=== PATIENT | female | born 1935 | race African-American/Black ===

== ENCOUNTER 2017-01-02 11:29 | Emergency (ER) | payer MEDICAID, MEDICARE ==
[~2017-01-02] VITALS: Ht 160 cm; Wt 77.1 kg
[~2017-01-02 11:29] MED LIST: AMITIZA24 MCG ORAL; AMLODIPINE BESY10 MG ORAL; ASPIR 8181 MG ORAL; BENAZEPRIL HCL20 MG ORAL; CARVEDILOL25 MG ORAL; COLACE100 MG ORAL; CYCLOBENZAPRINE10 MG ORAL; KEPPRA500 M4 ORAL; LACTULOSE20 GM/301 ORAL; LANTUS SOL100 UNIT/1 SUBQ; NORCO 5-325 TA1 EACH ORAL; NOVOLIN R100 UNIT/1 SUBQ; SIMVASTATIN40 MG ORAL; UNOBMED
[2017-01-02 12:08] VITALS: BP 106/63
[2017-01-02] MEDS ORDERED: Methocarbamol 750mg tab ORAL ONE (12:15)
[2017-01-02] MEDS ORDERED: Tylenol #3 tab (300mg/30mg) ORAL ONE (12:15)
[2017-01-02] MEDS ORDERED: CYCLOBENZAPRINE10 MG ORAL (12:31)
[2017-01-02 12:32] LABS: APPEARANCE,URINE SLIGHTLY CLOUDY; KETONES,URINE NEGATIVE (NEGATIVE); LEUKOCYTE ESTERASE ,URINE 3+ (NEGATIVE); NITRITE,URINE POSITIVE (NEGATIVE); PH,URINE 5 (4.5-8.0); PROTEIN,URINE 2+ (NEGATIVE); UROBILINOGEN,URINE 1 MG/DL (0.0-1.0)
--- NOTE | 2017-01-02 12:37 | Emergency Room Report ---
History of Present Illness General Chief Complaint: Pain Present Illness HPI The patient is a 81-year-old female presenting with right-sided back pain. 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 It is described as an 8/10 dull ache to the right lower back and radiates to the right inguinal region. Worse with walking. She states that she usually ambulates with a cane. She denies any numbness or tingling. She denies any other symptoms including nausea, vomiting , fever, chills, chest pain, shortness of breath, swelling, rash Allergies: Coded Allergies: No Known Allergies (Verified , 08/22/06) Patient History Past Medical History: see triage record Pertinent Family History: none Reviewed Nursing Documentation: PMH: Agreed, PSxH: Agreed Nursing Documentation-PMH Hx Cardiac Problems: No Hx Hypertension: Yes Hx Pacemaker: No Hx Asthma: No Hx COPD: No Hx Diabetes: Yes Hx Cancer: No Hx Gastrointestinal Problems: No Hx Dialysis: No Hx Neurological Problems: No Hx Cerebrovascular Accident: No Hx Seizures: No Review of Systems All Other Systems: negative except mentioned in HPI Physical Exam Vital Signs Date Time Temp Pulse Resp B/P Pulse Ox O2 Delivery O2 Flow Rate FiO2 01/02/17 11:47 98.1 70 20 106/63 96 Room Air Sp02 EP Interpretation: reviewed, normal General Appearance: no apparent distress, alert, GCS 15, non-toxic Head: normocephalic, atraumatic Eyes: bilateral eye PERRL, bilateral eye normal inspection Musculoskeletal: back normal, gait/station normal, normal range of motion, tender - TTP over the R posterior thigh. Neurologic: alert, oriented x3, responsive, motor strength/tone normal, sensory intact, speech normal Psychiatric: judgement/insight normal, memory normal, mood/affect normal, no suicidal/homicidal ideation Skin: normal color, no rash, warm/dry, well hydrated Medical Decision Making PA Attestation Dr. Swain is my supervising physician. Patient management was discussed with my supervising physician Diagnostic Impression: Primary Impression: Muscle strain Additional Impression: Urinary tract infection ER Course The patient is a 81-year-old female presenting with right-sided back pain. Ddx considered include but not limited to sprain/strain, fracture, contusion, pyelonephritis, among others PE: afebrile. NAD Normal gait TTP over the R posterior thigh and buttock. Abd is soft and non tender. No CVA tenderness UA consistent with UTI Pt is given pain medication and muscle relaxer and pain has decreased. She will be AZ'ed home with prescription for keflex and muscle relaxer. The patient was called on 01/03 regarding the urinalysis. She was told that she has a urinary tract infection and needs antibiotics. Prescription was sent to [facility] pharmacy where the patient states she will bulk picker the medication today. ER precautions given Laboratory Tests Test 01/02/17 12:22 Urine Color Yellow Urine Appearance Slightly cloudy Urine pH 5 (4.5-8.0) Urine Specific [place] 1.015 (1.005-1.035) Urine Protein 2+ (NEGATIVE) H Urine Glucose (UA) Negative (NEGATIVE) Urine Ketones Negative (NEGATIVE) Urine Occult Blood 2+ (NEGATIVE) H Urine Nitrite Positive (NEGATIVE) H Urine Bilirubin Negative (NEGATIVE) Urine Urobilinogen 1 MG/DL (0.0-1.0) H Urine Leukocyte Esterase 3+ (NEGATIVE) H Urine RBC 2-4 /HPF (0 - 2) H Urine WBC 30-40 /HPF (0 - 2) H Urine Squamous Epithelial Cells Moderate /LPF (NONE/OCC) H Urine Bacteria Moderate /HPF (NONE) H Lab Results Impression Consistent with UTI Last Vital Signs Date Time Temp Pulse Resp B/P Pulse Ox O2 Delivery O2 Flow Rate FiO2 01/02/17 12:08 98.1 78 20 106/63 96 Room Air Status: improved Disposition: HOME, SELF-CARE Condition: Improved Scripts Cephalexin* (KEFLEX*) 500 Mg Capsule 500 MG ORAL EVERY 12 HOURS, #14 CAP 0 Refills Prov: TERZIANCHENG P.A. 01/03/17 Cyclobenzaprine Hcl* (FLEXERIL*) 10 Mg Tablet 10 MG ORAL THREE TIMES A DAY, #15 TAB Prov: WASHINGTONCHENG P.A. 01/02/17 Patient Instructions: Muscle Strain, [id number] Additional Instructions: I discussed my findings with the patient. All questions and concerns have been answered. Treatment and medication compliance have been addressed. I advised the patient that they need to follow up with PMD in 3-5 days. Return to ED if symptoms worsen, new symptoms arise, or if needed for any reason. Patient verbalized understanding of discharge instructions. CHENG DELAROSA Jan 02, 2017 12:37
[2017-01-02 12:47] LABS: BACTERIA,URINE MODERATE /HPF; SQUAMOUS EPITHELIAL CELL,UR MODERATE /LPF (NONE/OCC); WBC,URINE 30-40 /HPF (0 - 2)
[2017-01-02 12:49] VITALS: BP 106/63
[2017-01-03] MEDS ORDERED: CEPHALEXIN500 MG ORAL (11:56)
== END 2017-01-02 12:56 | disposition home or self-care (01) ==
LOC: EMR 12:10
DX: S39.012A Strain of muscle, fascia and tendon of lower back, initial encounter (principal); X50.9XXA Other and unspecified overexertion or strenuous movements or postures, initial encounter; Y92.89 Other specified places as the place of occurrence of the external cause; N39.0 Urinary tract infection, site not specified; I10 Essential (primary) hypertension; E11.9 Type 2 diabetes mellitus without complications
CPT/HCPCS: 81003; 87086; 87181; 99284

== ENCOUNTER 2017-07-19 09:56 | Emergency (ER) | payer MEDICARE ==
[~2017-07-19] VITALS: Ht 160 cm; Wt 77.1 kg
[~2017-07-19 09:56] MED LIST changes: +CEPHALEXIN500 MG ORAL
[2017-07-19 10:14] VITALS: BP 124/57
[2017-07-19] MEDS ORDERED: NS 275ml ONE (10:31)
[2017-07-19] MEDS ORDERED: Tubing IV Secondary IV ONE (10:31)
[2017-07-19] MEDS ORDERED: Neosporin Oint Ud Pkt TOP ONE (11:00)
[2017-07-19] MEDS ORDERED: Tetanus/Diptheria/Pertussis Vaccine 0.5ml Syr IM ONE (11:00)
[2017-07-19] MEDS ORDERED: Ketorolac 30mg Inj IV ONE (11:00)
[2017-07-19] MEDS ORDERED: Morphine Sulfate 2mg/ml Inj IVP ONE (11:00)
--- NOTE | 2017-07-19 11:03 | Emergency Room Report ---
History of Present Illness General Chief Complaint: Multiple Trauma/Fall Source: Patient, Medical Record Present Illness HPI The patient fell on Monday. She didn't have her cane and turned and lost balance falling onto her right side. No LOC. She's been having headache and neck pain after that time. She presents complaining about this pain. She is the pain is 10/10. She's tried taking Mckenzie and it helped slightly. She also scraped her right knee. She's able to ambulate still using her cane. She is unsure when her last tetanus shot was. No NVD, chest pain, palpitations, cough, dysuria, change in vision, weakness. No fevers. Prior CVA. Allergies: Coded Allergies: No Known Allergies (Verified , 08/22/06) Patient History Past Medical History: see triage record Social History: Reports: smoking Social History Narrative with daughter Reviewed Nursing Documentation: PMH: Agreed, PSxH: Agreed Nursing Documentation-PMH Past Medical History: No History, Except For Hx Cardiac Problems: No Hx Hypertension: Yes Hx Pacemaker: No Hx Asthma: No Hx COPD: No Hx Diabetes: Yes Hx Cancer: No Hx Gastrointestinal Problems: No Hx Dialysis: No Hx Neurological Problems: No Hx Cerebrovascular Accident: No Hx Seizures: No Review of Systems All Other Systems: negative except mentioned in HPI Physical Exam Vital Signs Date Time Temp Pulse Resp B/P (MAP) Pulse Ox O2 Delivery O2 Flow Rate FiO2 07/19/17 10:04 97.6 68 18 133/65 98 Room Air 97.5 Sp02 EP Interpretation: reviewed, normal General Appearance: well appearing, no apparent distress, GCS 15 Head: normocephalic, atraumatic Eyes: bilateral eye normal inspection, bilateral eye PERRL, bilateral eye EOMI ENT: moist mucus membranes Neck: supple, no bony tend, tender - base of head, muscle tenderness Respiratory: chest non-tender, lungs clear, normal breath sounds Cardiovascular #1: regular rate, rhythm Cardiovascular #2: 2+ radial (R) Gastrointestinal: normal inspection, normal bowel sounds, non tender, no mass, non-distended Musculoskeletal: back normal, normal range of motion, pelvis stable, other - slight limp, tender - R knee without effusion, ligaments with laxity (all) Neurologic: alert, oriented x3, 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 nml as tested, motor strength/tone normal - slight weakness R LE, DTRs symmetric, sensory intact Psychiatric: mood/affect normal Skin: warm/dry, abrasions - R knee Medical Decision Making Diagnostic Impression: Primary Impression: Fall Qualified Codes: W19.XXXA - Unspecified fall, initial encounter Additional Impressions: UTI (urinary tract infection) Qualified Codes: N30.00 - Acute cystitis without hematuria Multiple injuries due to trauma Head injury Qualified Codes: S09.90XA - Unspecified injury of head, initial encounter Neck strain Qualified Codes: S16.1XXA - Strain of muscle, fascia and tendon at neck level , initial encounter Vascular calcification ER Course Patient with fall Monday with headache and neck pain. DDX: contusion, concussion, strain, sprain. Knee with abrasion and tenderness. Due to age CT head, neck and knee x-rays indicated. Also will check labs and urine. Analgesia ordered. CT head and neck with DJD, no acute bleed. Knee without fx. Labs essentially normal (glucose 194) with pyuria. Antibiotics ordered. Improved with treatment. Patient results discussed with Dr. Rogers who is in agreement with plan to treat as outpatient. Patient stable for outpatient observation and treatment. Laboratory Tests Test 07/19/17 11:05 07/19/17 11:40 White Blood Count 10.8 K/UL (4.8-10.8) Red Blood Count 3.88 M/UL (4.20-5.40) L Hemoglobin 11.7 G/DL (12.0-16.0) L Hematocrit 35.7 % (37.0-47.0) L Mean Corpuscular Volume 92 FL (80-99) Mean Corpuscular Hemoglobin 30.1 PG (27.0-31.0) Mean Corpuscular Hemoglobin Concent 32.7 G/DL (32.0-36.0) Red Cell Distribution Width 12.2 % (11.6-14.8) Platelet Count 228 K/UL (150-450) Mean Platelet Volume 7.9 FL (6.5-10.1) Neutrophils (%) (Auto) 72.4 % (45.0-75.0) Lymphocytes (%) (Auto) 19.1 % (20.0-45.0) L Monocytes (%) (Auto) 6.1 % (1.0-10.0) Eosinophils (%) (Auto) 1.4 % (0.0-3.0) Basophils (%) (Auto) 1.0 % (0.0-2.0) Prothrombin Time 9.8 SEC (9.30-11.50) Prothrombin Time INR 0.9 (0.9-1.1) PTT 28 SEC (23-33) Sodium Level 140 MMOL/L (136-145) Potassium Level 3.9 MMOL/L (3.5-5.1) Chloride Level 105 MMOL/L (98-107) Carbon Dioxide Level 30 MMOL/L (21-32) Anion Gap 5 mmol/L (5-15) Blood Urea Nitrogen 15 mg/dL (7-18) Creatinine 1.0 MG/DL (0.55-1.30) Estimate Glomerular Filtration Rate mL/min (>60) Glucose Level 194 MG/DL (74-106) H Calcium Level 9.2 MG/DL (8.5-10.1) Total Bilirubin 0.2 MG/DL (0.2-1.0) Aspartate Amino Transferase (AST) 12 U/L (15-37) L Alanine Aminotransferase (ALT) 14 U/L (12-78) Alkaline Phosphatase 72 U/L (46-116) Total Protein 7.2 G/DL (6.4-8.2) Albumin 3.2 G/DL (3.4-5.0) L Globulin 4.0 g/dL Albumin/Globulin Ratio 0.8 (1.0-2.7) L Urine Color Yellow Urine Appearance Clear Urine pH 5 (4.5-8.0) Urine Specific [place] 1.015 (1.005-1.035) Urine Protein Negative (NEGATIVE) Urine Glucose (UA) Negative (NEGATIVE) Urine Ketones Negative (NEGATIVE) Urine Occult Blood 1+ (NEGATIVE) H Urine Nitrite Positive (NEGATIVE) H Urine Bilirubin Negative (NEGATIVE) Urine Urobilinogen Normal MG/DL (0.0-1.0) Urine Leukocyte Esterase 2+ (NEGATIVE) H Urine RBC 2-4 /HPF (0 - 2) H Urine WBC 5-10 /HPF (0 - 2) H Urine Squamous Epithelial Cells Few /LPF (NONE/OCC) Urine Bacteria Moderate /HPF (NONE) H EKG Diagnostic Results Rate: normal Rhythm: NSR ST Segments: no acute changes Rhythm Strip Diag. Results EP Interpretation: yes Rhythm: NSR, no PVC's, no ectopy Other X-Ray Diagnostic Results Other X-Ray Diagnostic Results : X-Ray ordered: R knee # of Views/Limited Vs Complete: 3 View Indication: Pain EP Interpretation: Yes Interpretation: no dislocation, no soft tissue swelling, no fractures, other - calcificied vessels Impression: Other Electronically Signed by: Electronically signed by Luciano Walker MD CT/MRI/US Diagnostic Results CT/MRI/US Diagnostic Results #1: Imaging Test Ordered: head Impression atrophy CT/MRI/US Diagnostic Results #2: Imaging Test Ordered: c spine Impression spondylosis, vascular disease Last Vital Signs Date Time Temp Pulse Resp B/P (MAP) Pulse Ox O2 Delivery O2 Flow Rate FiO2 07/19/17 15:10 97.8 68 17 142/57 98 Room Air 97.8 Status: improved Disposition: HOME, SELF-CARE Condition: Improved Scripts Methocarbamol* (ROBAXIN*) 500 Mg Tablet 500 MG PO TID, #10 TAB 0 Refills Prov: Luciano Walker M.D. 07/19/17 Lactulose (LACTULOSE*) 20 Gm/30 Ml Solution 30 ML ORAL BID, #240 ML 0 Refills Prov: Luciano Walker M.D. 07/19/17 Hydrocodone Bit/Acetaminophen 5-325* (NORCO 5-325*) 1 Each Tablet 1 TAB ORAL Q6H Y for For Pain, #14 TAB 0 Refills Prov: Luciano Walker M.D. 07/19/17 Referrals: ANN ROGERS (PCP) Luciano Walker M.D. Jul 19, 2017 11:03
[2017-07-19 11:22] LABS: EOSINOPHILS % (AUTO) 1.4 % (0.0-3.0); HEMATOCRIT 35.7 % (37.0-47.0); HEMOGLOBIN 11.7 G/DL (12.0-16.0); LYMPHOCYTES % (AUTO) 19.1 % (20.0-45.0); MEAN CORPUSCULAR VOLUME 92 FL (80-99); MONOCYTES % (AUTO) 6.1 % (1.0-10.0); NEUTROPHILS % (AUTO) 72.4 % (45.0-75.0); PLATELET COUNT 228 K/UL (150-450); RED BLOOD COUNT 3.88 M/UL (4.20-5.40); RED CELL DISTRIBUTION WIDTH 12.2 % (11.6-14.8); WHITE BLOOD COUNT 10.8 K/UL (4.8-10.8)
[2017-07-19 11:31] LABS: INR 0.9 (0.9-1.1)
[2017-07-19 11:33] LABS: ANION GAP 5 mmol/L (5-15); BLOOD UREA NITROGEN 15 mg/dL (7-18); CALCIUM 9.2 MG/DL (8.5-10.1); CARBON DIOXIDE 30 MMOL/L (21-32); CHLORIDE 105 MMOL/L (98-107); POTASSIUM 3.9 MMOL/L (3.5-5.1); SODIUM 140 MMOL/L (136-145)
[2017-07-19 11:37] LABS: ALANINE AMINOTRANSFERASE 14 U/L (12-78); ALBUMIN 3.2 G/DL (3.4-5.0); ALBUMIN/GLOBULIN RATIO 0.8 (1.0-2.7); ALKALINE PHOSPHATASE 72 U/L (46-116); ASPARTATE AMINO TRANSFERASE 12 U/L (15-37); BILIRUBIN,TOTAL 0.2 MG/DL (0.2-1.0)
--- NOTE | 2017-07-19 11:47 | Diagnostic Imaging Report ---
Indication: Pain 3 views of the right knee were obtained. Findings: The patella is high riding. There is soft tissue swelling in the area of the patellar tendon which could be on the basis of tendinopathy, injury to the tendon and/or prepatellar bursitis. Please correlate clinically. Extensive calcification of the distal superficial femoral artery and popliteal artery noted extending into the tibial vessels. Joint space appears normal within the knee. There is no malalignment or acute fracture. Some cystic changes noted in the patella associated with some articular irregularity indicative of arthrosis. IMPRESSION: Patella renée. Soft tissue swelling noted anterior to the patellar tendon. Patellar tendon injury, tendinopathy or prepatellar bursitis are considerations. No acute fracture. Extensive vascular disease. Patellofemoral arthrosis
--- NOTE | 2017-07-19 11:47 | Diagnostic Imaging Report ---
Indication: Headache Technique: Contiguous 5 mm thick transaxial imaging of the head obtained in a Siemens Sensation [address] scanner. Soft tissue and bone windows generated. Automatic Exposure Control was utilized. Total Dose length Product (DLP): 1456.[address] Dose Index Volume (CTDIvol): 70.38 mGy Comparison: 04/02/2016 Findings: There is mild prominence of the ventricles, basal cisterns, and cerebral sulci consistent with atrophy. Mild, nonspecific, white matter hypoattenuation is noted throughout the brain consistent with chronic small vessel disease. There is no midline shift, edema, acute hemorrhage, mass effect, or abnormal extra-axial fluid collections. Bones and extra osseous soft tissues are unremarkable. Impression: No acute intracranial bleed, mass effect or edema. Mild atrophy of the brain. Nonspecific white matter hypoattenuation probably due to chronic small vessel disease. The CT scanner at [facility] is accredited by the [employer] and the scans are performed using dose optimization techniques as appropriate to a performed exam including Automatic Exposure control.
--- NOTE | 2017-07-19 11:56 | Diagnostic Imaging Report ---
Indication: Neck pain. Technique: Continuous helical imaging of the cervical spine was obtained transaxially from the skull base to the upper thoracic spine. 2-D coronal and sagittal reformatted images were obtained. Automatic Exposure Control was utilized. Total Dose length Product (DLP): 359.[address] Dose Index Volume (CTDIvol): 16 mGy Comparison: None Findings: There is no acute fracture or malalignment identified. There is no soft tissue swelling identified. Loss of cervical lordosis may be due to muscle spasm. Mild uncovertebral arthritis is demonstrated at multiple levels. Some of the intervertebral discs show mild narrowing. Extensive extracranial carotid vertebral and aortic arch vessel calcifications are present. Paraseptal blebs noted in the apex of both lungs. Impression: No acute injury Mild spondylosis Atherosclerotic vascular disease The CT scanner at [facility] is accredited by the [employer] and the scans are performed using dose optimization techniques as appropriate to a performed exam including Automatic Exposure control.
[2017-07-19 12:01] LABS: APPEARANCE,URINE CLEAR; BILIRUBIN, URINE NEGATIVE (NEGATIVE); GLUCOSE, URINE (UA) NEGATIVE (NEGATIVE); KETONES,URINE NEGATIVE (NEGATIVE); LEUKOCYTE ESTERASE ,URINE 2+ (NEGATIVE); NITRITE,URINE POSITIVE (NEGATIVE); PH,URINE 5 (4.5-8.0); PROTEIN,URINE NEGATIVE (NEGATIVE); UROBILINOGEN,URINE NORMAL MG/DL (0.0-1.0)
[2017-07-19 12:05] LABS: COLOR,URINE YELLOW
[2017-07-19 12:30] VITALS: BP 126/59
[2017-07-19] MEDS ORDERED: cefTRIAXone 1 GM in NS 55 ML IVPB ONE (12:45)
[2017-07-19 14:43] VITALS: BP 142/57
[2017-07-19] MEDS ORDERED: NORCO 5-325 TA1 EACH ORAL (14:59)
[2017-07-19] MEDS ORDERED: LACTULOSE20 GM/301 ORAL (14:59)
[2017-07-19] MEDS ORDERED: ROBAXIN500 MG PO (14:59)
[2017-07-19 15:10] VITALS: BP 142/57
--- NOTE | 2017-07-20 12:57 | Cardiology Report ---
APPROVED REPORT EKG Measurement Heart [id number] OR [id number] [id number] Normal sinus rhythm Normal ECG
== END 2017-07-19 15:10 | disposition home or self-care (01) ==
LOC: EMR 10:30
DX: S16.1XXA Strain of muscle, fascia and tendon at neck level, initial encounter (principal); S09.8XXA Other specified injuries of head, initial encounter; S80.211A Abrasion, right knee, initial encounter; W19.XXXA Unspecified fall, initial encounter; Y92.9 Unspecified place or not applicable; N39.0 Urinary tract infection, site not specified; I70.90 Unspecified atherosclerosis; Z23 Encounter for immunization; E11.9 Type 2 diabetes mellitus without complications; M47.812 Spondylosis without myelopathy or radiculopathy, cervical region; G31.9 Degenerative disease of nervous system, unspecified
CPT/HCPCS: 36415; 70450; 72125; 73562; 80053; 81001; 82962; 85025; 85610; 85730; 87086; 87181; 90471; 90715; 93005; 96365; 96375; 99284; J0696; J1885; J2270; J7050; 96374

== ENCOUNTER 2020-06-18 12:37 | Outpatient (CLI) | payer MEDICARE, MEDICAID ==
[~2020-06-18 12:37] MED LIST changes: +ROBAXIN500 MG PO; +TRAMADOL HCL50 MG ORAL; +TYLENOL325 MG ORAL
--- NOTE | 2020-06-18 14:00 | Consultation ---
DATE OF CONSULTATION: 06/18/2020 GASTROENTEROLOGY CONSULTATION CONSULTING PHYSICIAN: Kendall Bell MD. REFERRING PHYSICIAN: Brittani Zhang MD. CHIEF COMPLAINT: Referral for rectal bleeding. HISTORY OF PRESENT ILLNESS: This is a very pleasant 84-year-old female with numerous medical problems, which I will dictate in a second, has had rectal bleeding, and was referred to us for evaluation with colonoscopy. PAST MEDICAL HISTORY: 1. History of coronary artery disease. 2. Hypertension. 3. Diverticulosis. 4. History of colonic polyps. 5. Hemorrhoids. 6. Diabetes. ALLERGIES: No known allergies. MEDICATIONS: Please see medication reconciliation list. SOCIAL HISTORY: The patient denies any tobacco, alcohol, or drug abuse. FAMILY HISTORY: Noncontributory. PAST SURGICAL HISTORY: 1. History of uterine mass. 2. Left tibia fracture ORIF. 3. Cataract surgery bilaterally. REVIEW OF SYSTEMS: A 10-point review of systems was performed and pertinent positives in HPI. PHYSICAL EXAMINATION: VITAL SIGNS: Temperature is 99, pulse 73, respirations 18, blood pressure /86. HEENT: Normocephalic and atraumatic. Sclerae are anicteric. NECK: Supple. No evidence of obvious lymphadenopathy. CARDIOVASCULAR: Tachy, regular rate. Plus S1-S2. LUNGS: Decreased breath sounds bilaterally based on the supine exam. ABDOMEN: Soft, nontender. No rebound. No guarding. No peritoneal sign. EXTREMITIES: No cyanosis, no clubbing, no edema. LABORATORY AND DIAGNOSTIC DATA: Labs not available. ASSESSMENT AND PLAN: This is an 84-year-old female with history of diverticular bleed and history of colonic polyps, presented to rectal bleeding. The patient will benefit from repeat colonoscopy for evaluation of source of bleeding. The patient was given instruction for colonoscopy. Risks and benefits of procedure was explained to her and to the son. We will plan to schedule her soon. I want to thank Dr. Zhang for this kind referral. Kendall Bell M.D. : SCOTT JOB#: [id number] CC: Brittani Zhang M.D.; Fax#: [phone]
== END 2020-06-18 14:37 | disposition home or self-care (01) ==
LOC: PAN 12:37
DX: K62.5 Hemorrhage of anus and rectum (principal); I25.10 Atherosclerotic heart disease of native coronary artery without angina pectoris; I10 Essential (primary) hypertension; K57.90 Diverticulosis of intestine, part unspecified, without perforation or abscess without bleeding; Z86.010 Personal history of colon polyps; E11.9 Type 2 diabetes mellitus without complications
CPT/HCPCS: 99212

== ENCOUNTER 2020-06-29 08:45 | Day surgery (SDC) | payer MEDICARE, MEDICAID ==
[2020-06-29] VITALS (7 sets, daily range): BP systolic 146–161; BP diastolic 74–86
[~2020-06-29] VITALS: Ht 157.5 cm; Wt 80.7 kg
[~2020-06-29 08:45] MED LIST changes: +LR 1000ml 1,000 ML IVLG SCH
--- NOTE | 2020-06-29 10:02 | Anethesia Preoperative Eval ---
Anesthesia Pre-op PMH/ROS General Date of Evaluation: Jun 29, 2020 Time of Evaluation: 09:58 Anesthesiologist: Celi ASA Score: ASA 3 Mallampati Score Class I : Soft palate, uvula, fauces, pillars visible Class II: Soft palate, uvula, fauces visible Class III: Soft palate, base of uvula visible Class IV: Only hard plate visible Mallampati Classification: Class III Surgeon: Arabella Diagnosis: H/o polips Surgical Procedure: Colonoscopy Anesthesia History: none Family History: no anesthesia problems Allergies: Coded Allergies: No Known Allergies (Verified , 06/24/20) Medications: see eMAR Patient NPO?: Yes Past Medical History Cardiovascular: Reports: HTN, CAD - no recent CP; Denies: [place], valve dz, arrhythmia, other Pulmonary: Reports: COPD - mild, life long h/o smoking Gastrointestinal/Genitourinary: Reports: GERD; Denies: CRI, ESRD, other Neurologic/Psychiatric: Reports: depression/anxiety; Denies: dementia, CVA, TIA, other Endocrine: Reports: DM, hypothyroidism; Denies: steroids, other HEENT: Reports: cataract (L), cataract (R) - s/p Sx Hematology/Immune: Reports: anemia - mild; Denies: DVT, bleeding disorder, other Musculoskeletal/Integumentary: Reports: DJD; Denies: OA, RA, DDD, edema, other Other: other - overweight PMH Narrative: as above PSxH Narrative: see H&P Anesthesia Pre-op Phys. Exam Physician Exam Last Vital Signs Date Time Temp Pulse Resp B/P (MAP) Pulse Ox O2 Delivery O2 Flow Rate FiO2 06/29/20 09:06 97.5 93 18 154/86 97 Room Air Constitutional: NAD Neurologic: CN 2-12 intact Cardiovascular: RRR, no M/R/G Respiratory: CTA Gastrointestinal: other - [id number] Airway Exam Mallampati Score: Class III MO: limited Neck: stiff ROM: limited Teeth: missing Dentures: no upper, no lower Anesthesia Pre-op A/P Risk Assessment & Plan Assessment: ASA 3 Plan: Rangel Roamno MD Jun 29, 2020 10:02
--- NOTE | 2020-06-29 10:08 | Short Stay Surgery H&P ---
History of Present Illness History of Present Illness Chief Complaint see office consult note HPI Amara Rasheed is a 84 year old female who was admitted on for Hx Of Colon Polyps Patient History Allergies: Coded Allergies: No Known Allergies (Verified , 06/24/20) Medication History Scheduled Amlodipine Besylate* (Amlodipine Besylate*), 10 MG ORAL DAILY, (Reported) Aspirin* (Aspir 81*), 81 MG ORAL DAILY, (Reported) Benazepril Hcl* (Benazepril Hcl*), 20 MG ORAL EVERY 12 HOURS, (Reported) Carvedilol* (Carvedilol*), 25 MG ORAL EVERY 12 HOURS, (Reported) Docusate Sodium* (Colace*), 100 MG ORAL DAILY, (Reported) Insulin Glargine (Lantus), 10 SUBQ BEDTIME, (Reported) Insulin Regular, Human* (Novolin R*), 0 SUBQ AC, (Reported) Lactulose (Lactulose*), 30 ML ORAL BID Levetiracetam (Keppra), 500 MG ORAL EVERY 12 HOURS, (Reported) Lubiprostone (Amitiza*), 24 MCG ORAL EVERY 12 HOURS, (Reported) Methocarbamol* (Robaxin*), 500 MG PO TID Simvastatin (Zocor), 40 MG ORAL BEDTIME, (Reported) Scheduled PRN Acetaminophen (Tylenol), 650 MG ORAL Q6H PRN for Prn Pain/Headache/Temp > 101 Hydrocodone Bit/Acetaminophen 5-325* (Camby 5-325*), 1 TAB ORAL Q6H PRN for For Pain Tramadol Hcl* (Ultram*), 50 MG ORAL Q6H PRN for For Pain Physical Exam Vital Signs Last Vital Signs Date Time Temp Pulse Resp B/P (MAP) Pulse Ox O2 Delivery O2 Flow Rate FiO2 06/29/20 09:06 97.5 93 18 154/86 97 Room Air Plan Attestation Are the patient's medical conditions optimized for surgery? Kendall Bell MD Jun 29, 2020 10:08
--- NOTE | 2020-06-29 10:08 | Pre-Procedure Note/Attestation ---
Pre-Procedure Note/Attestation Complete Prior to Procedure Planned Procedure: not applicable Procedure Narrative: colonoscopy Indications for Procedure Pre-Operative Diagnosis: h/o colon polyps Attestation I attest that I discussed the nature of the procedure; its benefits; risks and complications; and alternatives (and the risks and benefits of such alternatives), prior to the procedure, with the patient (or the patient's legal branch service representative). I attest that, if there was a reasonable possibility of needing a blood transfusion, the patient (or the patient's legal branch service representative) was given the [facility] standardized written summary, pursuant to the [place] Catherine Blood Safety Act ([place] Health and Safety Code # 1645, as amended). I attest that I re-evaluated the patient just prior to the surgery and that there has been no change in the patient's H&P, except as documented below: Kendall Bell MD Jun 29, 2020 10:08
[2020-06-29] MEDS ORDERED: fentaNYL 100 mcg/2 mL IV ONE (10:30)
[2020-06-29] MEDS ORDERED: LR 1000ml ONE (10:30)
--- NOTE | 2020-06-29 10:56 | Endoscopy Procedure Note ---
Endoscopy Procedure Note General Indication for Procedure: rectal bleed Procedures Performed: colonoscopy Operative Findings/Diagnosis: diverticulosis Specimen: none Pt Tolerated Procedure Well: Yes Estimated Blood Loss: none Anesthesia Anesthesiologist: helen Anesthesia: MAC Inserted Devices Implant(s) used?: No Quality Quality of Bowel Preparation: Good Did scope reach the cecum?: No Why scope didn't reach cecum: Severe diverticulosis Was there any complications?: No GI Core Measures 50 yrs or older w/o bx or poly: No 10yrs. F/U recommended: Yes If not recommended, why?: Above average risk 18 years or older w/prev. colo: No Kendall Bell MD Jun 29, 2020 10:56
--- NOTE | 2020-06-29 11:04 | Immediate Post-Op Evaluation ---
Immediate Post-Op Evalulation Immediate Post-Op Evalulation Procedure: Colonoscopy Date of Evaluation: Jun 29, 2020 Time of Evaluation: 11:03 IV Fluids: 500 Blood Products: none Estimated Blood Loss: none Urinary Output: none Blood Pressure Systolic: 154 Blood Pressure Diastolic: 82 Pulse Rate: 78 Respiratory Rate: 20 O2 Sat by Pulse Oximetry: 99 Temperature (Fahrenheit): 98.0 Pain Score (1-10): 1 Nausea: No Vomiting: No Complications none Patient Status: reacts, patent, none Hydration Status: adequate Rangel Alatorre MD Jun 29, 2020 11:04
--- NOTE | 2020-06-29 13:54 | 48 Hour Post Anesthesia Eval ---
Post Anesthesia Evaluation Procedure: Colonoscopy Date of Evaluation: Jun 29, 2020 Time of Evaluation: 13:53 Blood Pressure Systolic: 146 0: 78 Pulse Rate: 72 Respiratory Rate: 22 Temperature (Fahrenheit): 97.6 O2 Sat by Pulse Oximetry: 98 Airway: patent Nausea: No Vomiting: No Pain Intensity: 1 Hydration Status: adequate Cardiopulmonary Status: stable Mental Status/LOC: patient returned to baseline Follow-up Care/Observations: n/a Post-Anesthesia Complications: none Follow-up care needed: ready to discharge Rangel Alatorre MD Jun 29, 2020 13:54
--- NOTE | 2020-07-05 19:14 | Procedure Note ---
DATE OF PROCEDURE: 06/29/2020 ENDOSCOPIST: Kendall Bell MD ANESTHESIOLOGIST: Rangel Alatorre MD PROCEDURE PERFORMED: Colonoscopy. INSTRUMENT USED: Olympus adult flexible colonoscope. INDICATIONS FOR PROCEDURE: Screening and history of colonic polyps. The procedure, risks, benefits, and possible consequences, including hemorrhage, aspiration, perforation and infection, and alternative treatments, were explained to the patient/legal guardian by Dr. Kendall Bell and the patient/legal guardian understood and accepted these risks. DESCRIPTION OF PROCEDURE: After informed consent was obtained and the patient was adequately sedated, a rectal examination was performed, which was positive for external and internal hemorrhoids. Then, the scope was advanced into the rectum and into the ascending colon. We could not pass the scope into the cecum. There was difficulty with passing the scope. We did put the patient on the back and put different kind of abdominal pressures. Given her age, the patient was not tolerating it very well, so we decided not to pursue. The patient has evidence of significant diverticulosis in the left colon. There was a possible lipoma seen in the proximal ascending colon, but we could not reach the scope to that area to do biopsy of it. No further polyp was seen. Retroflexion maneuver in the rectum showed evidence of internal hemorrhoids. SUMMARY OF FINDINGS: 1. Internal and external hemorrhoids. 2. Significant diverticulosis of left colon. 3. Incomplete colonoscopic examination, only up to ascending colon was examined. 4. A large possible lipoma in the proximal ascending colon. RECOMMENDATION: Given her age and given she did not tolerate the full colonoscopy and we could not get the scope into the cecum, we recommend a Cologuard test to be done to make sure she does not have anything in the cecum area. Kendall Bell M.D. DR: LEAH JOB#: [id number] CC:
== END 2020-06-29 11:50 | disposition home or self-care (01) ==
LOC: GAS 08:45
DX: Z12.11 Encounter for screening for malignant neoplasm of colon (principal); Z86.010 Personal history of colon polyps; K64.8 Other hemorrhoids; K64.4 Residual hemorrhoidal skin tags; K57.90 Diverticulosis of intestine, part unspecified, without perforation or abscess without bleeding
CPT/HCPCS: 93005; 94003; G0105; J2704; J3010; J7120; U0004; 94150